=== PATIENT | female | born 1975 | race Two or more races ===

== ENCOUNTER 2025-05-14 09:12 | Emergency (ER) | payer MEDICAID, SELFPAY ==
[2025-05-14 09:15] VITALS: BP 137/89; PULSE 69; RESP 18; TEMP 36.7; O2SAT 96
[2025-05-14 09:21] VITALS: PULSE 78
--- NOTE | 2025-05-14 09:46 | XR_ITS ---
Examination: CT brain head without contrast. 2-D sagittal coronal reconstructions Date and time of exam: May 14, 2025, 10:13 a.m., comparison December 25, 2017 INDICATIONS: Generalized head pain with severe dizziness today CTDI: vol (mGy): 48.9 DLP: (mGycm): 945 Technique: Multiple CT axial sections of the brain have been obtained, 5 mm slice thickness. Contrast has not been administered. 2-D sagittal, coronal reconstructions have been obtained Low dose protocols were performed. One or more of the following dose reduction techniques were used; automated exposure control, adjustment of the mA and/or KV according to patient size, use of iterative reconstruction technique. Findings: No significant ventricular enlargement. Intra-axial or extra-axial hemorrhage density is not seen. No mass effect or midline shift Basal cisterns are not remarkable. Fourth ventricle is midline. Cranial vault intact. Impression: Negative for acute hemorrhage, mass effect or midline shift As clinically warranted, if symptoms persist, consider brain MRI follow-up, stroke protocol
--- NOTE | 2025-05-14 09:47 | PD.EDRME ---
Rapid Medical Screening Exam RME Arrival date/time: 05/14/25 09:12 49-year-old female presents to the emergency department today via EMS with complains of headache as well as vomiting ongoing since this morning Chief Complaint: Headache Vital signs: Vital Signs Temperature 98.0 F 05/14/25 09:15 Pulse Rate 69 05/14/25 09:15 Respiratory Rate 18 05/14/25 09:15 Blood Pressure 137/89 H 05/14/25 09:15 Pulse Oximetry (%) 96 05/14/25 09:15 Oxygen Delivery Method Room Air 05/14/25 09:15 Vital signs reviewed by provider: Yes Exam: On exam patient is vomiting and have reports headache Clinical Impression: Lab work and imaging as well as pain medication and medication for nausea ordered
[2025-05-14 10:40] LABS: Alanine Aminotransferase 21 U/L (10-49); Albumin, Serum 5.0 gm/dL (3.5-5.0); Albumin/Globulin Ratio 2.1 (1.2-2.2); Alkaline Phosphatase 89 U/L (46-116); Anion Gap 10 (7-16); Aspartate Amino Transferase 19 U/L (0-34); BUN/Creatinine Ratio 21 Ratio (12-20); Bilirubin,Total 0.5 mg/dL (0.3-1.2); Blood Urea Nitrogen 15 mg/dL (9-23); Calcium 9.5 mg/dL (8.3-10.6); Calcium (Corrected) 9.5 mg/dL (8.5-10.1); Carbon Dioxide 27.4 mMol/L (20.0-31.0); Chloride 104 mMol/L (98-107); Creatinine (Component) 0.7 mg/dL (0.6-1.3); Globulin 2.4 gm/dL (2.3-3.5); Glucose 183 mg/dL (74-106); Osmolality,Calculated 287 (275-295); Potassium 4.0 mMol/L (3.4-5.1); Sodium 141 mMol/L (136-145); Total Protein 7.4 gm/dL (5.7-8.2); eGFR > 60 See Note
[2025-05-14] MEDS: HYDROcodone/APAP 5/325 TABLET 1 TAB PO (11:23)
[2025-05-14] MEDS: METOCLOPRAMIDE INJ 5 MG/ML VIAL 2 ML 10 MG IM (11:27)
[2025-05-14 11:43] LABS: Basophils # (Auto) 0.0 Thou/mm3 (0.0-0.2); Basophils % (Auto) 0 % (0-2.5); Eosinophils # (Auto) 0.1 Thou/mm3 (0.0-0.5); Eosinophils % (Auto) 1 % (0-10); Hematocrit 40.5 % (36.0-46.0); Hemoglobin 14.2 g/dL (12.0-16.0); Immature Granulocytes Auto 0.02 Thou/mm3 (0.00-0.00); Lymphocytes # (Auto) 0.9 Thou/mm3 (1.0-4.8); Lymphocytes % (Auto) 11 % (10-50); Mean Corpuscular HGB Conc 35.1 g/dl (31.0-37.0); Mean Corpuscular Hemoglobin 28.4 pg (25.0-35.0); Mean Corpuscular Volume 81 fL (80-100); Monocytes # (Auto) 0.4 Thou/mm3 (0.0-0.8); Monocytes % (Auto) 5 % (0-12); Neutrophils # (Auto) 6.5 Thou/mm3 (1.8-7.7); Neutrophils % (Auto) 82 % (37-80); Nucleated Red Blood Cell # 0.00 Thou/mm3 (0.00-0.00); Nucleated Red Blood Cell % 0 /100 WBC (0); Platelet Count 288 Thou/mm3 (140-440); RDW Standard Deviation 37.0 fL (36.4-46.3); Red Blood Count 5.00 Miln/mm3 (4.00-5.20); White Blood Count 7.9 Thou/mm3 (3.6-11.0)
--- NOTE | 2025-05-14 12:30 | EDNOTE_ITS ---
<Statement entered by Cindy Lorenz MD - 05/14/25 16:25> As co-signing physician, I was present and available for consult prn. I concur with the plan and care as documented by the midlevel provider. ED General RME/HPI General Chief complaint: Headache Stated complaint: VOMITING HEADACHE x 2 HOURS Time Seen by Provider: 05/14/25 12:21 Arrival date/time: 05/14/25 09:12 CC: Headache nausea vomiting HPI ongoing since 7 AM this morning with a headache has been intermittent for the past month. The patient has multiple sclerosis and states that she has been having headaches in the past for a long time denies fever chills chest pain shortness of breath or difficulty breathing. At the time of the exam at 1230 the patient states that she is feeling better the nausea is resolved and after the injection given in the waiting room her headache is diminished. Patient is awake alert oriented nontoxic-appearing not in any acute distress. RME / HPI RME / HPI narrative: 05/14/25 09:12 49-year-old female presents to the emergency department today via EMS with complains of headache as well as vomiting ongoing since this morning Exam: On exam patient is vomiting and have reports headache Impression: Lab work and imaging as well as pain medication and medication for nausea ordered Related Data Home Medications ?Medication ?Instructions ?Recorded ?Confirmed ibuprofen 600 mg tablet 600 mg PO TID 09/17/1809/17 topiramate 50 mg tablet (Topamax) 50 mg PO BID 9 09/17/18 Previous Rx's ?Medication ?Instructions ?Recorded meclizine 25 mg tablet 25 mg PO [id number] PRN dizzine ss #10 09/17/18 tabs ondansetron 4 mg disintegrating 4 mg PO Q8H PRN nausea and 09/17/18 tablet vomiting #5 tabs indomethacin 25 mg capsule 25 mg PO TID #30 caps 01/12 cyclobenzaprine 10 mg tablet 10 mg PO BID #14 tabs ibuprofen 800 mg tablet 800 mg PO Q6H PRN pain #14 t abs 11/19/19 meloxicam 7.5 mg tablet 7.5 mg PO QDAY #10 tabs 05/04 07/28 ondansetron 4 mg disintegrating 4 mg PO Q8H #10 tabs 1 07/14/24 tablet Allergies Allergy/AdvReac Type Severity Reaction Status Date / Time UNKNOWN MEDICATION Allergy Unknown Uncoded 05/14/25 09:32 Review of Systems Review of Systems Narrative Review of Systems: GEN: No fever, no chills, no weight loss EYES: No discharge, no visual changes, no pain HEENT: No ear pain, no congestion, no sore throat PULM: No shortness of breath, no cough, no congestion CV: No chest pain, no dyspnea on exertion, no palpitations GI: No nausea, no vomiting, no diarrhea, no pain, no constipation : No frequency, no urgency, no dysuria MUSC/SKEL: No joint pain, no back pain SKIN: No rash PSYCH: No hallucinations, no depression HEME/LYMPH: No easy bleeding or bruising tendencies NEURO: No weakness, + headache Past Medical History Past Medical History CARDIAC: Negative Congestive Heart Failure RESPIRATORY: Negative Chronic Obstructive Pulmonary Disease (COPD) GENITOURINARY: Negative Renal Disease ENDOCRINE: Negative Diabetes Mellitus Type 1 or Diabetes Mellitus Type 2 Family History FAMILY HISTORY: Negative Family Neurologic Problems, Family Psychiatric Problems, Family Respiratory Disorders, Family Cardiac Disorders, Family Gastrointestinal Problems, Family Cancer, Family Surgery or Family Anesthesia Reaction Surgical History SURGICAL: Positive Section Social History SMOKING STATUS: Never smoker SUBSTANCE USE: does not use ED Exam Narrative Physical exam: [General: Obese not in any acute distress Head normocephalic HEENT: Eyes: Pupils are PERRLA EOMs are intact no nystagmus. Mouth pink moist membranes uvula is midline swallow symmetrical all the subsystems of HEENT are no within acceptable limits Neck is supple nontender no JVD Chest equal chest rise nontender to palpation Respiratory: Clear to auscultation no wheezes crackles or rubs CV: Rate rhythm is regular no murmurs rubs or clicks Abdomen is distended secondary to body habitus soft nontender no masses positive bowel sounds all 4 quadrants Back: No CVA tenderness no spinous process tenderness from cervical spine thoracic and lumbar spine Skin: Intact no petechiae rash induration ulceration or crepitus Extremities: Moving all extremity against resistance cap refill less than 2 seconds neurosensory intact Neuro: Awake alert oriented x3 Glascow coma 15 no focal deficits] Course Quality Measures none Orders Category Date Time Status CT head/brain wo con Stat Exams 05/14/25 09:46 Completed CBC Stat Lab 05/14/25 10:01 Completed CMP [Comprehensive Metabolic Panel] Stat Lab 05/14/25 10:01 Completed DiphenhydrAMINE INJ [Benadryl Inj] Med 05/14/25 09:46 Discontinued 25 mg IM X1 ONE HYDROcodone*/APAP 5/325 [[place] 5/325] Med 05/14/25 09:46 Discontinued 1 tab PO X1 ONE Metoclopramide Inj [Reglan Inj] Med 05/14/25 09:46 Discontinued 10 mg IM X1 ONE Vital Signs Vital signs: Vital Signs Temperature 98.0 F 05/14/25 09:15 Pulse Rate 69 05/14/25 09:15 Respiratory Rate 18 05/14/25 09:15 Blood Pressure 137/89 H 05/14/25 09:15 Pulse Oximetry (%) 96 05/14/25 09:15 Oxygen Delivery Method Room Air 05/14/25 09:15 Discharge Plan Plan Patient Disposition: HOME (Self Care) Patient condition on transfer: Stable Prescriptions/Referrals Prescriptions/Med Rec: New meloxicam 7.5 mg tablet 7.5 mg PO QDAY Qty: 10 0RF ondansetron 4 mg tablet,disintegrating 4 mg PO Q8H Qty: 10 0RF No Action cyclobenzaprine 10 mg tablet 10 mg PO BID Qty: 14 0RF ibuprofen 800 mg tablet 800 mg PO Q6H PRN (Reason: pain) Qty: 14 0RF ibuprofen 600 mg Tablet 600 mg PO TID topiramate [Topamax] 50 mg Tablet 50 mg PO BID meclizine 25 mg tablet 25 mg PO [id number] PRN (Reason: dizziness) Qty: 10 0RF ondansetron 4 mg tablet,disintegrating 4 mg PO Q8H PRN (Reason: nausea and vomiting) Qty: 5 0RF indomethacin 25 mg capsule 25 mg PO TID Qty: 30 0RF Rx Instructions: administer with food or milk Referrals: Perez Brown MD [Physician, Family Practice] - In 1 week Problem List Clinical Impression: Headache, Nausea & vomiting, Hyperglycemia Patient/Caregiver Discharge Instructions Education Materials: High Blood Sugar (Hyperglycemia), Self-Care for Vomiting and Diarrhea, Self-Care for Headaches Additional Instructions: Take the medication as needed for nausea and headache. Follow-up with your primary care doctor I am concerned about your elevated blood glucose level. Print Language: Maltese Stand Alone Forms: Zaria Award Info., Patient Portal Info Letter, Work/School Release RADHA/MARYANN Supervising Physician CHAPIN Supervising Physician: Charbel Wing ENP [facility] Clinical Information Provided by: patient Medical Records reviewed [facility] Meds/Rx considered, not ordered None Labs/Rad/Tests considered, not ordered None Chronic Illness/Social Conditions Explain: Multiple sclerosis EKG EKG not done Labs Labs: interpreted by me Lab(s) Interpretation(s): CBC shows no acute leukocytosis anemia thrombocytopenia CMP shows an elevated blood glucose at 183 no other electrolyte imbalances renal impairment transaminitis or T. bili elevation. Imaging Imaging interpretation: interpreted by nm Imaging Interpretation(s): CT head is negative for any acute finding requires emergent or immediate intervention. Medication Administration(s) Medication Administration History Discontinued Medications Hydrocodone Bitart/Acetaminophen (Hydrocodone/Apap 5/325 Tablet) 1 tab PO X1 ONE Stop: 05/14/25 09:47 Last Admin: 05/14/25 11:23 Dose: 1 tab Documented By: ADAMA Diphenhydramine HCl (Diphenhydramine Inj 50 Mg/Ml Vial) 25 mg IM X1 ONE Stop: 05/14/25 09:47 Last Admin: 05/14/25 11:24 Dose: 25 mg Documented By: ADAMA Metoclopramide HCl (Metoclopramide Inj 5 Mg/Ml Vial 2 Ml) 10 mg IM X1 ONE; Protocol Stop: 05/14/25 09:47 Last Admin: 05/14/25 11:27 Dose: 10 mg Documented By: ADAMA
[2025-05-14 12:32] VITALS: BMI 33.3
== END 2025-05-14 12:45 | disposition home or self-care (01) ==
LOC: SERX 12:53
PROVIDERS: Nurse Practitioner Primary Care; Emergency Provider Emergency Medicine
DX: R11.2 Nausea with vomiting, unspecified (principal); R73.9 Hyperglycemia, unspecified; G35.D Multiple sclerosis, unspecified
CPT/HCPCS: 36415; 70450; 80053; 85025; 96372; 99283; J1200; J2765; A9270

== ENCOUNTER → 2025-05-16 | Outpatient (CLI) | payer MEDICAID, SELFPAY ==
--- NOTE | 2025-05-16 09:11 | XR_ITS ---
Examination: Shoulder, left, 3 views Technique: Shoulder AP internal rotation, AP external rotation, Y view shoulder, 3 views Exam date and time : May 16, 2025, 1003 hours INDICATIONS: Left shoulder pain 3 months. FINDINGS: Moderate osteopenia Moderate osteoarthritis acromioclavicular joint No fracture or shoulder dislocation Moderate calcific tendinitis IMPRESSION: Moderate left shoulder calcific tendinitis
--- NOTE | 2025-05-16 09:15 | XR_ITS ---
Examination: Screening digital mammography, bilateral Computer aided detection 3-D breast Tomosynthesis, bilateral Date and time of exam: May 16, 2025, 0920 hours Compared to mammograms dating to July 01, 2017 Indication: Screening Technique: Nonmagnified MLO, CC views of the breasts to been obtained, reconstructed from 3-D Tomosynthesis images. R2 computer aided detection program utilized for evaluation of suspicious masses and/or abnormal calcifications. 3-D Tomosynthesis images obtained. Findings: Scattered areas of fibroglandular density. Benign calcifications. No interval suspicious mass Impression: BI-RADS category II: Benign Findings. Recommend 1 year follow-up mammogram.
== END | disposition home or self-care (01) ==
LOC: CDIM 08:55
PROVIDERS: Referring Provider Physician Assistant; Visit Provider Physician Assistant
DX: Z12.31 Encounter for screening mammogram for malignant neoplasm of breast (principal); R92.323 Mammographic fibroglandular density, bilateral breasts; R92.1 Mammographic calcification found on diagnostic imaging of breast; M75.32 Calcific tendinitis of left shoulder
CPT/HCPCS: 73030; 77063; 77067